=== PATIENT | female | born 1960 | race Caucasian/White ===

== ENCOUNTER 2024-12-02 18:24 | Emergency (ER) | payer OTHER, SELFPAY ==
[2024-12-02] VITALS (21 sets, daily range): BP systolic 129–175; BP diastolic 62–86; PULSE 70–97; RESP 9–26; O2SAT 92–100; BMI 29.2
--- NOTE | 2024-12-02 18:30 | DI.RAD.S_ITS ---
PROCEDURE: XR ANKLE RT 2V INDICATIONS: injury with pain TECHNIQUE: 2 views of the ankle were acquired. COMPARISON: None. FINDINGS: Bones: Fracture dislocation of the ankle. Moderately displaced fibular fracture obliquely oriented is seen. The talus is posteriorly displaced in relation to the tibia . Tibial plafond mildly displaced fracture is seen. Calcaneal enthesopathy. Mild midfoot background degenerative changes. Soft tissues: No suspicious calcifications. IMPRESSION: Fracture dislocation of the ankle as described above, possibly a pilon fracture Dictated by: Samir Couch M.D. on 12/02/2024 at 19:17 Approved by: Samir Couch M.D. on 12/02/2024 at 19:18
[2024-12-02] MEDS: KETOROLAC 30 MG/ML VIAL 15 MG IV (18:42)
[2024-12-02] MEDS: HYDROMORPHONE 1 MG INJ IV ×3 (18:54→21:50)
--- NOTE | 2024-12-02 20:35 | ED.LOWEXIN ---
HPI - Extremity Injury (Lower) General Chief Complaint: Extremity Injury, Lower Stated Complaint: GLF, Possible right ankle Fx Time Seen by Provider: 12/02/24 20:35 Source: patient and EMS Mode of arrival: EMS Limitations: no limitations History of Present Illness HPI Narrative: 64-year-old female history of GERD patient presents with complaint of suspected right ankle fracture. Patient was walking her dog the dog went [address] she went the other [address] states she fell had significant ankle pain and reports deformity. She notes some tingling numbness in the foot. She can wiggle her toes. States she was quite painful. Denies any other injuries. Denies hitting her no neck or back pain, no chest pain shortness of breath no nausea or vomiting GI or urinary symptoms. Patient states she takes medication for reflux. Does not take any other daily medications. Has a prior history of diskectomy for her back. Does use tobacco daily, states she has 2 or 3 glasses of wine daily, denies any other recreational drugs. She was accompanied by her . Patient received 40 mg of ketamine IV, 200 mcg fentanyl and 4 mg Zofran EN route with EMS Related Data Home Medications Medication Instructions Recorded Confirmed carisoprodol 350 mg tablet 350 mg PO PRN ##0 05/28/11 ibuprofen 800 mg tablet 800 mg PO PRN ##0 05/28/11 Allergies Allergy/AdvReac Type Severity Reaction Status Date / Time No Known Drug Allergies Allergy Verified 12/02/24 18:36 Review of Systems Review of Systems ROS Unobtainable: All systems reviewed & are unremarkable except as noted in HPI and below Patient History Social History Smoking Status: Current every day smoker Smoking Status: Current every day smoker tobacco type: cigarettes Alcohol type: wine Exam Narrative Exam Narrative: GENERAL: Alert and oriented x three, moderate distress HEENT: Head normocephalic, atraumatic, EOMI, pupils reactive, face symmetric, moist mucous membranes NECK: Supple, full range of motion CARDIOVASCULAR: Regular rate and rhythm without murmurs, rubs or gallops. RESPIRATORY: Breath sounds equal bilaterally, no wheezes rales or rhonchi. ABDOMEN: Soft, nontender. Normoactive bowel sounds all 4 quadrants. No guarding or rebound, rigidity, no mass : No CVA tenderness EXTREMITIES: Normal range of motion of all extremities except for the right ankle. Patient has sensation to light touch. 2+ dorsalis on the right no bony tenderness of the right knee, hip or thigh., no clubbing or edema. Neurovascularly intact. NEUROLOGICAL: Cranial nerves II through XII grossly intact. Moving all extremities SKIN: Warm, dry, no petechiae, no rashes or lesions. Initial Vital Signs Initial Vital Signs: Vital Signs Pulse Rate 82 12/02/24 18:27 Respiratory Rate 16 12/02/24 18: Blood Pressure 175/86 H 12/02/24 18:27 Pulse Oximetry 100 12/02/24 18:27 Oxygen Delivery Method Room Air 12/02/24 18:27 Procedures Orthopedic Joint Reduction Joint #1: Time Out Performed: Yes Side: right Joint Reduction Location: ankle Analgesia: procedural sedation Technique used: traction/counter-traction and direct manipulation Post-reduction neuro exam: intact and no change Post-reduction vascular: intact and no change Post Reduction X-Ray Obtained: Yes Post Reduction X-Ray Results: reduced Splint Applied: Yes Patient Tolerated Procedure: Well Procedural Sedation Consent signed: Yes Indication: fracture/dislocation reduction ASA Class: II Mallampati Airway Classification: Class II Time of Last PO Intake: 12:00 Preparation: court recording monitor applied, pulse oximeter, capnometry used, supplemental O2 applied, suction/airway equipment at bedside and IV secured IV Propofol dose (mg): 75 ED Sedation Level: Moderate (Concious) Complications: hypoventilation Interventions: Airway repositioned, Assist by BVM (BVM for 1-2 minutes.) and Oxygen applied Course Orders Ordered: ED Orders 12/02/24 21:17 XR ankle RT min 3V Stat 12/02/24 21:54 CT LE RT wo con Stat Discontinued Medications Hydromorphone HCl (Hydromorphone 1 Mg Inj) 1 mg IV NOW ONE Stop: 12/02/24 18:53 Last Admin: 12/02/24 18:54 Dose: 1 mg Documented By: BERNARDINO Hydromorphone HCl (Hydromorphone 1 Mg Inj) 1 mg IV NOW ONE Stop: 12/02/24 19:40 Last Admin: 12/02/24 19:43 Dose: 1 mg Documented By: RANI Hydromorphone HCl (Hydromorphone 1 Mg Inj) 1 mg IV NOW ONE Stop: 12/02/24 21:45 Last Admin: 12/02/24 21:50 Dose: 1 mg Documented By: RANI Ketorolac Tromethamine (Ketorolac 30 Mg/Ml Vial) 15 mg IV NOW ONE Stop: 12/02/24 18:39 Last Admin: 12/02/24 18:42 Dose: 15 mg Documented By: BERNARDINO Oxycodone/Acetaminophen (Oxycodone/Apap 5/325 Prepack) 1 bottle MISC DIRECTED ONE Stop: 12/02/24 21:51 Last Admin: 12/02/24 21:59 Dose: 1 bottle Documented By: RANI Oxycodone/Acetaminophen (Oxycodone/Acetaminophen 5/325 Tablet) 2 tab PO NOW ONE Stop: 12/02/24 22:52 Last Admin: 12/02/24 22:58 Dose: 2 tab Documented By: RANI Propofol (Propofol 200 Mg/20 Ml Vial) 75 mg 1 mg/kg (75 mg) IV NOW ONE Stop: 12/02/24 20:52 Last Admin: 12/02/24 21:03 Dose: 75 mg Documented By: RANI Vital Signs Vital signs: Vital Signs - 8 hr 12/02/24 20:31 12/02/24 20:31 12/02/24 20:56 Pulse Rate 75 75 Respiratory Rate 20 Blood Pressure 150/69 H Pulse Oximetry 99 98 12/02/24 20:56 12/02/24 21:00 12/02/24 21:01 Pulse Rate 75 Respiratory Rate 26 H Blood Pressure 172/77 H 161/75 H Pulse Oximetry 99 12/02/24 21:01 12/02/24 21:05 12/02/24 21:05 Pulse Rate 80 81 Respiratory Rate 17 12 Blood Pressure 129/62 Pulse Oximetry 98 92 12/02/24 21:10 12/02/24 21:10 12/02/24 21:15 Pulse Rate 82 Respiratory Rate 17 Blood Pressure 145/71 H 129/66 Pulse Oximetry 98 12/02/24 21:15 12/02/24 21:30 12/02/24 21:31 Pulse Rate 86 76 Respiratory Rate 18 25 H Blood Pressure 152/79 H Pulse Oximetry 92 96 12/02/24 21:31 12/02/24 21:45 12/02/24 21:45 Pulse Rate 84 77 Respiratory Rate 21 15 Blood Pressure 138/67 Pulse Oximetry 97 97 12/02/24 21:55 12/02/24 21:55 12/02/24 22:29 Pulse Rate 89 Respiratory Rate 13 Blood Pressure 141/67 H 141/63 H Pulse Oximetry 12/02/24 22:29 12/02/24 22:30 12/02/24 23:00 Pulse Rate 87 80 74 Respiratory Rate 10 L 9 L 17 Blood Pressure Pulse Oximetry 97 96 98 12/02/24 23:30 12/03/24 00:00 Pulse Rate 70 78 Respiratory Rate 21 24 Blood Pressure Pulse Oximetry 98 97 MDM - Extremity Injury (Lower) Lab Data Labs: Point of Care Testing Test Results Not applicable Imaging Data Extremity x-ray #1: Radiologist's Impression: [address] [address] XRay Report Signed Patient: Rufina Mccartney MR#: [id number] : 1960 Acct:[id number] Age/Sex: 64 / F Date of Service: 12/02/24 Loc: ED Accession Number: [id number] Procedure: XR ankle RT 2V Ordering Provider: Shaunna Villa D.O. PROCEDURE: XR ANKLE RT 2V INDICATIONS: injury with pain TECHNIQUE: 2 views of the ankle were acquired. COMPARISON: None. FINDINGS: Bones: Fracture dislocation of the ankle. Moderately displaced fibular fracture obliquely oriented is seen. The talus is posteriorly displaced in relation to the tibia . Tibial plafond mildly displaced fracture is seen. Calcaneal enthesopathy. Mild midfoot background degenerative changes. Soft tissues: No suspicious calcifications. IMPRESSION: Fracture dislocation of the ankle as described above, possibly a pilon fracture Dictated by: Samir Couch M.D. on 12/02/2024 at 19:17 Approved by: Samir Couch M.D. on 12/02/2024 at 19:18 Extremity x-ray #2: Radiologist's Impression: [address] [address] XRay Report Signed Patient: Rufina Mccartney MR#: [id number] : 1960 Acct:[id number] Age/Sex: 64 / F Date of Service: 12/02/24 Loc: ED Accession Number: [id number] Procedure: XR ankle RT min 3V Ordering Provider: Shaunna Villa D.O. PROCEDURE: XR ANKLE RT MIN 3V INDICATIONS: post reduction TECHNIQUE: 3 views of the ankle were acquired. COMPARISON: [facility], , XR ANKLE RT 2V, 12/02/2024, 18:43. FINDINGS: Bones: Interval casting partially obscures the fine osseous and soft tissue detail. Redemonstration of mildly displaced obliquely oriented distal fibular fracture extending to the syndesmosis, nondisplaced tibial plafond fracture and mildly displaced posterior malleolar fracture. There is improved alignment status post reduction. No new fracture identified. Soft tissues: No tibiotalar joint effusion. Achilles tendon appears normal. IMPRESSION: Status post interval casting and successful reduction of ankle fracture dislocation. Approved by: Krystal Stewart M.D.,Ph.D. on 12/02/2024 at 21:39 CT LE: Radiologist's Impression: [place] [address] CT Scan Report Signed Patient: Rufina Mccartney MR#: [id number] : 1960 Acct:[id number] Age/Sex: 64 / F Date of Service: 12/02/24 Loc: ED Accession Number: [id number] Procedure: CT LE RT wo con Ordering Provider: Shaunna Villa D.O. PROCEDURE: CT LE RT WO CON INDICATIONS: ankle fx, concern for pilon request by ortho TECHNIQUE: Noncontrast 3-mm axial sections acquired from the distal tibial shaft to the talar dome, with coronal and sagittal reformats.. COMPARISON: Right ankle radiographs 12/02/2024. FINDINGS: Image quality: Diagnostic. Bones: There is transverse oriented fracture of the distal fibula at the level of the syndesmosis. Nondisplaced comminuted fracture of the tibial plafond and extending to the medial malleolus and posterior malleolus. Bony fracture fragments are seen adjacent to sustentaculum (2/205). Small fracture fragment at the talonavicular joint space (2/218, /) which may represent small avulsion fracture. Soft tissues: Ankle joint effusion and soft tissue bruising/hematoma. IMPRESSION: Trimalleolar fracture dislocation. Query avulsion fracture at the talonavicular joint space. Approved by: Krystal Stewart M.D.,Ph.D. on 12/02/2024 at 23:12 MDM Narrative Medical decision making narrative: 64-year-old female presents with a mechanical ground level fall with fracture dislocation of the ankle x-ray shows moderately displaced fibular fracture obliquely oriented talus is posterior displaced in relation to the tibia tibial plafond mildly displaced calcaneal this to be mild mid foot background degenerative changes. Impression notes possibly pilon fracture. Patient is quite painful despite multiple doses of pain medications prior to reduction. Discussed procedural sedation with the patient and family at bedside. They are agreeable discussed risks benefits with both. Patient had sedation did require about a minute or 2 with bagging had some hypoventilation and hypo oxygenation but otherwise tolerated well. Patient appears to be reduced on recheck. Paged [phone] Dr. Mcqueen orthopedic surgery. Reviewed images would like CT for planning purposes for surgery. We will touch base after it is completed. 2240: Dr. Mcqueen orthopedic surgery reviewed images of CT. Feels patient likely needs transfer for larger facility for more specialized orthopedic surgery. Updated patient and family patient's pain is improved significantly after her reduction but still somewhat uncomfortable IV medications or not fairly quickly so we will give a dose of oral medication and see if this does better. She notes all their tingling has resolved after reduction. Contacted [facility], spoke with coordinator [phone]. Spoke with Dr. Celina Harper accepts for transfer to [facility] ED. Plan for ground transport. Updated patient and family comfortable with plan. Discharge Plan Departure Patient Disposition: [facility] Clinical Impression: Ankle fracture, right Prescriptions: No Action carisoprodol 350 MG tablet 350 mg PO PRN Qty: 0 ibuprofen 800 MG tablet 800 mg PO PRN Qty: 0 Referrals: Jonatan Mcqueen MD [Physician] - Stand Alone Forms: Patient Portal/API/Survey
[2024-12-02] MEDS: propofoL 200 MG/20 ML VIAL 75 MG IV (21:03)
--- NOTE | 2024-12-02 21:17 | DI.RAD.S_ITS ---
PROCEDURE: XR ANKLE RT MIN 3V INDICATIONS: post reduction TECHNIQUE: 3 views of the ankle were acquired. COMPARISON: [facility], CR, XR ANKLE RT 2V, 12/02/2024, 18:43. FINDINGS: Bones: Interval casting partially obscures the fine osseous and soft tissue detail. Redemonstration of mildly displaced obliquely oriented distal fibular fracture extending to the syndesmosis, nondisplaced tibial plafond fracture and mildly displaced posterior malleolar fracture. There is improved alignment status post reduction. No new fracture identified. Soft tissues: No tibiotalar joint effusion. Achilles tendon appears normal. IMPRESSION: Status post interval casting and successful reduction of ankle fracture dislocation. Approved by: Krystal Stewart M.D.,Ph.D. on 12/02/2024 at 21:39
--- NOTE | 2024-12-02 21:54 | DI.CT.S_ITS ---
PROCEDURE: CT LE RT WO CON INDICATIONS: ankle fx, concern for pilon request by ortho TECHNIQUE: Noncontrast 3-mm axial sections acquired from the distal tibial shaft to the talar dome, with coronal and sagittal reformats.. COMPARISON: Right ankle radiographs 12/02/2024. FINDINGS: Image quality: Diagnostic. Bones: There is transverse oriented fracture of the distal fibula at the level of the syndesmosis. Nondisplaced comminuted fracture of the tibial plafond and extending to the medial malleolus and posterior malleolus. Bony fracture fragments are seen adjacent to sustentaculum (2/205). Small fracture fragment at the talonavicular joint space (2/218, 4/84) which may represent small avulsion fracture. Soft tissues: Ankle joint effusion and soft tissue bruising/hematoma. IMPRESSION: Trimalleolar fracture dislocation. Query avulsion fracture at the talonavicular joint space. Approved by: Krystal Stewart M.D.,Ph.D. on 12/02/2024 at 23:12
[2024-12-02] MEDS: OXYCODONE/APAP 5/325 PREPACK 1 BOTTLE MISC (21:59)
[2024-12-02] MEDS: OXYCODONE/ACETAMINOPHEN 5/325 TABLET 2 TAB PO (22:58)
[2024-12-03] VITALS: PULSE 78; RESP 24; O2SAT 97
--- NOTE | 2025-01-21 07:57 | PC.NURSE ---
Late Entry -- On 12/02 @ 4227 1mg IV Dilaudid was given by this RN. Forgot to document.
== END 2024-12-03 00:35 | disposition short-term general hospital (02) ==
PROVIDERS: Emergency Provider Emergency Medicine
DX: S82.851A Displaced trimalleolar fracture of right lower leg, initial encounter for closed fracture (principal); W18.30XA Fall on same level, unspecified, initial encounter; F17.200 Nicotine dependence, unspecified, uncomplicated
CPT/HCPCS: 27818; 73600; 73610; 73700; 96374; 96375; 96376; 99284; J1171; J1885; J2704